=== PATIENT | female | born 1970 | race Caucasian/White ===

== ENCOUNTER 2016-05-31 13:56 | Emergency (ER) | payer OTHER ==
[~2016-05-31] VITALS: Ht 157.5 cm; Wt 70.5 kg
[~2016-05-31 13:56] MED LIST: ACET325 PO
[2016-05-31 13:58] VITALS: BP 182/89; PULSE 129; RESP 20; TEMP 99.3; O2SAT 97
--- NOTE | 2016-05-31 15:41 | PD ---
HPI Chief Complaint: Abdominal Pain Time Seen by Provider: 15:41 Travel History International Travel<30 days: No Contact w/Intl Traveler<30days: No Traveled to known affect area: No History of Present Illness HPI 46-year-old female presents to the emergency department for evaluation of abdominal pain. Patient states is a pressure in her abdomen. She states she has had it for approximately 3-4 weeks. She also reports low back pain. The patient does report a history of ovarian cysts. However, she states this pain is not consistent with previous pain from her ovarian cyst. She states that she has a history of tubal ligation was concerned that she could be as her causing her symptoms. She states that her periods have been different, intermittent bleeding with them. Patient denies any fevers. She has associated nausea, no vomiting. No diarrhea. No blood in her stool. No chest pain or shortness of breath. Patient has history of tubal ligation and 2 C- sections. She denies any abnormal vaginal discharge. PFS Past Medical History Ulcer: Yes : 2 Para: 2 Tubal Ligation: Yes Past Surgical History Section: Yes (BOTH DELIVERIES) Social History Alcohol Use: Yes (OCCASIONALLY) Tobacco Use: Yes (ELECTRIC CIGARETTES) Substance Use: No Allergies-Medications (Allergen,Severity, Reaction): Coded Allergies: Aspirin (Verified Allergy, Severe, HIVES, 05/31/16) Motrin (Verified Allergy, Severe, HIVES, 05/31/16) Reported Meds & Prescriptions Reported Meds & Active Scripts Active Review of Systems Except as stated in HPI: all other systems reviewed are Neg Physical Exam Narrative GENERAL: Well-nourished, well-developed female patient, Ambulatory. Afebrile. SKIN: Focused skin assessment warm/dry. HEAD: Normocephalic. Atraumatic. EYES: No scleral icterus. No injection or drainage. NECK: Supple, trachea midline. No JVD or lymphadenopathy. CARDIOVASCULAR: Regular rate and rhythm without murmurs, gallops, or rubs. RESPIRATORY: Breath sounds equal bilaterally. No accessory muscle use. Lungs sounds are clear to auscultation. GASTROINTESTINAL: Abdomen soft and nondistended. Patient has diffuse tenderness to palpation. MUSCULOSKELETAL: No cyanosis, or edema. BACK: Nontender without obvious deformity. No CVA tenderness. Data Data Last Documented VS Vital Signs Date Time Temp Pulse Resp B/P Pulse Ox O2 Delivery O2 Flow Rate FiO2 05/31/16 17:18 99 05/31/16 13:58 99.3 129 20 182/89 Room Air Orders Complete Blood Count With Diff (05/31/16 15:41) Comprehensive Metabolic Panel (05/31/16 15:41) Lipase (05/31/16 15:41) Urinalysis - C+S If Indicated (05/31/16 15:41) Iv Access Insert/Monitor (05/31/16 15:41) Ecg Monitoring (05/31/16 15:41) Oximetry (05/31/16 15:41) Sodium Chloride 0.9% Flush (Ns Flush) (05/31/16 15:45) Ed Urine Pregnancytest Poc (05/31/16 15:41) Ondansetron Inj (Zofran Inj) (05/31/16 15:45) Ct Abd/Pel W Iv Contrast(Rout) (05/31/16 ) Iohexol 350 Inj (Omnipaque 350 Inj) (05/31/16 17:21) Mandatory Outpatient Referral (05/31/16 18:04) Labs Laboratory Tests Test 05/31/16 16:00 White Blood Count 7.2 TH/MM3 Red Blood Count 4.48 MIL/MM3 Hemoglobin 13.1 GM/DL Hematocrit 38.7 % Mean Corpuscular Volume 86.4 FL Mean Corpuscular Hemoglobin 29.2 PG Mean Corpuscular Hemoglobin 33.9 % Concent Red Cell Distribution Width 13.2 % Platelet Count 229 TH/MM3 Mean Platelet Volume 7.3 FL Neutrophils (%) (Auto) 77.5 % Lymphocytes (%) (Auto) 11.0 % Monocytes (%) (Auto) 6.7 % Eosinophils (%) (Auto) 4.4 % Basophils (%) (Auto) 0.4 % Neutrophils # (Auto) 5.5 TH/MM3 Lymphocytes # (Auto) 0.8 TH/MM3 Monocytes # (Auto) 0.5 TH/MM3 Eosinophils # (Auto) 0.3 TH/MM3 Basophils # (Auto) 0.0 TH/MM3 CBC Comment DIFF FINAL Differential Comment Urine Color YELLOW Urine Turbidity CLEAR Urine pH 8.0 Urine Specific Ola 1.025 Urine Protein 30 mg/dL Urine Glucose (UA) NEG mg/dL Urine Ketones NEG mg/dL Urine Occult Blood NEG Urine Nitrite NEG Urine Bilirubin NEG Urine Urobilinogen 2.0 MG/DL Urine Leukocyte Esterase NEG Urine RBC LESS THAN 1 /hpf Urine WBC 1 /hpf Urine Squamous Epithelial 2 /hpf Cells Urine Mucus MOD /lpf Microscopic Urinalysis Comment CULT NOT INDICATED Sodium Level 139 MEQ/L Potassium Level 4.2 MEQ/L Chloride Level 103 MEQ/L Carbon Dioxide Level 29.4 MEQ/L Anion Gap 7 MEQ/L Blood Urea Nitrogen 13 MG/DL Creatinine 0.88 MG/DL Estimat Glomerular Filtration 69 ML/MIN Rate Random Glucose 96 MG/DL Calcium Level 9.3 MG/DL Total Bilirubin 0.5 MG/DL Aspartate Amino Transf 72 U/L (AST/SGOT) Alanine Aminotransferase 88 U/L (ALT/SGPT) Alkaline Phosphatase 77 U/L Total Protein 8.2 GM/DL Albumin 3.9 GM/DL Lipase 138 U/L [facility] Medical Decision Making Medical Screen Exam Complete: Yes Emergency Medical Condition: Yes Medical Record Reviewed: Yes Interpretation(s) CT abdomen/pelvis - CONCLUSION: 1. Abnormal enlargement of the cervix with enhancement concerning for malignancy. GRAPHICS PRODUCTION SPECIALIST evaluation is warranted. Differential Diagnosis Ovarian cyst versus pancreatitis versus UTI versus constipation versus unlikely Narrative Course 46-year-old female presents to the emergency department for evaluation abdominal pain for 3-4 weeks. On physical exam, patient has diffuse tenderness to palpation. CBC, CMP, lipase, UA, urine test are ordered and pending. CBC shows no acute abnormality. CMP shows elevated AST 72, AST 88. Lipase is 138. UA is negative for acute infection. UPT is negative. CT abdomen/pelvis shows abnormal enlargement of the cervix with enhancement concerning for malignancy. GRAPHICS PRODUCTION SPECIALIST evaluation is warranted. I discussed CT results my attending physician, Dr. Gonzalez, who recommends follow-up with outpatient safety instructor. I discussed this and gave the patient a copy of results. A mandatory referral was placed. I will have registration or financial counselor speak to the patient about patient assistance. Verbalizes agreement states she will follow up outpatient. She is return for any acute worsening of symptoms. Diagnosis Primary Impression: Cervix abnormality Referrals: Mechanical Test Technician call for appointment Patient Instructions: Cervical Cancer (GEN), General Instructions Additional Instructions: Please follow up with safety instructor as your CT scan is concerning for cervical cancer. A mandatory referral was placed. Return to the emergency department for any acute worsening of symptoms. Med/Other Pt SpecificInfo: No Change to Meds Disposition: 01 DISCHARGE HOME Condition: Stable Ankita Guzman May 31, 2016 15:41
[2016-05-31] MEDS ORDERED: ONDANSETRON HCL 4 MG/2 ML VIAL IV PUSH ONE (15:45)
[2016-05-31 16:10] LABS: AUTOMATED NEUTROPHIL # 5.5 TH/MM3 (1.8-7.7); BASOPHIL % 0.4 % (0.0-2.0); EOSINOPHIL # 0.3 TH/MM3 (0-0.4); EOSINOPHIL % 4.4 % (0.0-4.0); HEMATOCRIT 38.7 % (35.0-46.0); HEMO FLAGS DIFF FINAL; LYMPHOCYTE # 0.8 TH/MM3 (1.0-4.8); MEAN CELL VOLUME 86.4 FL (80.0-100.0); MEAN CORPUSCULAR HEMOGLOBIN 29.2 PG (27.0-34.0); MEAN CORPUSCULAR HGB CONC 33.9 % (32.0-36.0); MONO % 6.7 % (0.0-8.0); NEUT % 77.5 % (16.0-70.0); PLATELET COUNT 229 TH/MM3 (150-450); RED BLOOD COUNT 4.48 MIL/MM3 (4.00-5.30); RED CELL DISTRIBUTION WIDTH 13.2 % (11.6-17.2); WHITE BLOOD COUNT 7.2 TH/MM3 (4.0-11.0)
[2016-05-31 16:18] LABS: BLOOD, URINE NEG (NEG); COMMENT (UR) CULT NOT INDICATED; CULTURE IF INDICATED CULT NOT INDICATED; GLUCOSE,URINE NEG (NEG); KETONE, URINE NEG (NEG); MUCUS URINE MOD /lpf (OCC); NITRITE,URINE NEG (NEG); SQUAMOUS EPITHELIAL CELL URINE 2 /hpf (0-5); URINE COLOR YELLOW (YELLW/STRAW)
[2016-05-31 16:32] LABS: ALKALINE PHOSPHATASE 77 U/L (45-117); ALT (GPT) 88 U/L (10-53); ANION GAP 7 MEQ/L (5-15); AST (GOT) 72 U/L (15-37); BICARBONATE 29.4 MEQ/L (21.0-32.0); BLOOD UREA NITROGEN 13 MG/DL (7-18); CHLORIDE 103 MEQ/L (98-107); GLOMERULAR FILTRATION RATE 69 ML/MIN (>89); POTASSIUM 4.2 MEQ/L (3.5-5.1); SODIUM (NA) 139 MEQ/L (136-145); TOTAL BILIRUBIN ADULT 0.5 MG/DL (0.2-1.0)
[2016-05-31] MEDS: SODIUM CHLORIDE 0.9% FLUSH 10 ML FLUSH IV FLUSH PRN ×3 (16:45→17:23)
[2016-05-31 17:18] VITALS: O2SAT 99
[2016-05-31] MEDS ORDERED: IOHEXOL 350 MG/ML 10 ML VIAL (for RAD DIAG) IV ONE (17:21)
--- NOTE | 2016-05-31 17:50 | RADRPT ---
EXAM DATE/TIME: 05/31/2016 17:19 [facility] COMPARISON: CT ABDOMEN & PELVIS W CONTRAST, November 04, 2014, 13:46. INDICATIONS : Abdominal pain and pressure radiating to low back. IV CONTRAST: 100 cc Omnipaque 350 (iohexol) IV ORAL CONTRAST: No oral contrast ingested. RADIATION DOSE: 9.96 CTDIvol (mGy) MEDICAL HISTORY : Ulcers. Abnormal periods. SURGICAL HISTORY : None. ENCOUNTER: Initial ACUITY: 1 day PAIN SCALE: 6/10 LOCATION: Bilateral lower quadrant TECHNIQUE: Volumetric scanning of the abdomen and pelvis was performed. Using automated exposure control and ad justment of the mA and/or kV according to patient size, radiation dose was kept as low as reasonably achievable to obtain optimal diagnostic quality images. FINDINGS: The limited portion of the lung base visualized is clear. The appearance of the liver, spleen, pancreas, adrenal glands and kidneys are within normal limits. T he abdominal aorta is normal in caliber. There is no retroperitoneal adenopathy. The visualized loops of small and large bowel are unremarkable. Imaging through the pelvis demonstrates abnormal enlargement of the cervix. This extends nearly to th e pelvic sidewall with diffuse enhancement. Examination would be concerning for a possible cervical m alignancy. STUDIO TECHNICIAN examination is warranted for further assessment. No iliac or inguinal adenopathy is seen. The visualized bony structures are grossly intact. CONCLUSION: 1. Abnormal enlargement of the cervix with enhancement concerning for malignancy. STUDIO TECHNICIAN evaluation is w arranted. Humberto Mcdowell MD on May 31, 2016 at 17:41 Board Certified Radiologist. This report was verified electronically.
== END 2016-05-31 18:54 | disposition home or self-care (01) ==
LOC: NEPD 13:56
DX: N88.8 Other specified noninflammatory disorders of cervix uteri (principal); M54.5 Low back pain
CPT/HCPCS: 74177; 80053; 81001; 83690; 84703; 85025; 96374; 99284; J2405; Q9967

== ENCOUNTER → 2016-08-25 | Outpatient (CLI) | payer OTHER ==
[2016-08-25 12:24] LABS: AUTOMATED NEUTROPHIL # 5.2 TH/MM3 (1.8-7.7); BASOPHIL # 0.1 TH/MM3 (0-0.2); BASOPHIL % 0.7 % (0.0-2.0); EOSINOPHIL # 0.6 TH/MM3 (0-0.4); EOSINOPHIL % 8.3 % (0.0-4.0); HEMATOCRIT 36.2 % (35.0-46.0); LYMPH % 12.4 % (9.0-44.0); LYMPHOCYTE # 0.9 TH/MM3 (1.0-4.8); MEAN CELL VOLUME 85.9 FL (80.0-100.0); MEAN CORPUSCULAR HEMOGLOBIN 28.4 PG (27.0-34.0); MONO % 6.8 % (0.0-8.0); NEUT % 71.8 % (16.0-70.0); PLATELET COUNT 230 TH/MM3 (150-450); RED BLOOD COUNT 4.21 MIL/MM3 (4.00-5.30); RED CELL DISTRIBUTION WIDTH 12.8 % (11.6-17.2); WHITE BLOOD COUNT 7.2 TH/MM3 (4.0-11.0)
[2016-08-25 12:27] LABS: HEMO FLAGS AUTO DIFF
[2016-08-25 12:54] LABS: ALT (GPT) 71 U/L (10-53); ANION GAP 9 MEQ/L (5-15); AST (GOT) 56 U/L (15-37); BICARBONATE 29.5 MEQ/L (21.0-32.0); BLOOD UREA NITROGEN 11 MG/DL (7-18); CHLORIDE 100 MEQ/L (98-107); GLOMERULAR FILTRATION RATE 71 ML/MIN (>89); GLUCOSE,FASTING 88 MG/DL (74-99); POTASSIUM 4.1 MEQ/L (3.5-5.1); SODIUM (NA) 138 MEQ/L (136-145)
[2016-08-25 13:04] LABS: ALKALINE PHOSPHATASE 90 U/L (45-117); HDL CHOLESTEROL 71.4 MG/DL (40.0-60.0); LDL CHOLESTEROL 93 MG/DL (0-99); TOTAL BILIRUBIN ADULT 0.4 MG/DL (0.2-1.0)
[2016-08-25 13:49] LABS: SCAN/DIFF AUTO DIFF CONFIRMED
== END ==
LOC: CLAB 12:00
PROVIDERS: ATTEND Family Medicine
DX: N88.9 Noninflammatory disorder of cervix uteri, unspecified (principal); B19.20 Unspecified viral hepatitis C without hepatic coma; Z72.0 Tobacco use
CPT/HCPCS: 36415; 80053; 80061; 84443; 85025

== ENCOUNTER 2017-05-09 11:30 | Emergency (ER) | payer OTHER ==
[~2017-05-09] VITALS: Ht 157.5 cm; Wt 80.0 kg
[~2017-05-09 11:30] MED LIST changes: -ACET325 PO; +DIFL150T PO
[2017-05-09 11:46] VITALS: BP 158/72; PULSE 106; RESP 17; TEMP 98.5; O2SAT 97
--- NOTE | 2017-05-09 12:20 | PD ---
HPI Chief Complaint: Pain: Acute or Chronic Time Seen by Provider: 12:08 Travel History International Travel<30 days: No Contact w/Intl Traveler<30days: No Traveled to known affect area: No History of Present Illness HPI 47-year-old female presents to the emergency room for evaluation of chronic low back pain and left foot bunion. Patient has history of chronic low back pain and states this exacerbation worsened 1 month ago. She can only take Tylenol because of allergy to aspirin and ibuprofen. She denies fever, chills, nausea, vomiting, weight loss, IV drug use, saddle anesthesia, loss of bowel or bladder control, or lower extremity paresthesias. The left foot bunion has been worsening over the past several weeks. States pain is worsened with ambulation. History Social History Alcohol Use: Yes (OCCASIONALLY) Tobacco Use: No Allergies-Medications (Allergen,Severity, Reaction): Coded Allergies: aspirin (Unverified Allergy, Severe, HIVES, 05/09/17) ibuprofen (Unverified Allergy, Severe, HIVES, 05/09/17) Reported Meds & Prescriptions Reported Meds & Active Scripts Active Diflucan (Fluconazole) 150 Mg Tab 150 Mg PO ONCE Review of Systems Except as stated in HPI: all other systems reviewed are Neg Physical Exam Narrative GENERAL: Well-nourished, well-developed female no acute distress. Afebrile. Ambulatory. SKIN: Focused skin assessment warm/dry. HEAD: Normocephalic. EYES: No scleral icterus. No injection or drainage. MUSCULOSKELETAL: No cyanosis, or edema. There is a hallux valgus to the left foot that is mildly tender to palpation. BACK: Nontender without obvious deformity. No CVA tenderness. Negative straight leg raise bilaterally. Data Data Last Documented VS Vital Signs Date Time Temp Pulse Resp B/P (MAP) Pulse Ox O2 Delivery O2 Flow Rate FiO2 05/09/17 11:46 98.5 106 17 158/72 (100) 97 MDM Medical Screen Exam Complete: Yes Emergency Medical Condition: No Differential Diagnosis Hallux valgus, chronic back pain Narrative Course 47-year-old female presents to the emergency room for evaluation of 2 chronic medical conditions. The first is back pain, the second has hallux valgus. No red flag symptoms. Negative straight leg raise bilaterally. Patient is ambulatory. Vital signs stable. There are no urgent or emergent medical conditions at this time. A medical screening exam was performed: At the time of evaluation the presenting medical condition was determined not to be of an emergent nature. The patient was given the option of receiving additional care, but declined. Patient was given options for additional community resources from which to obtain care. The Patient Has Been advised to seek medical attention for their presenting complaint. The patient has been advised to return to the ER at any time if an emergent condition develops. Primary Impression: Encounter for medical screening examination Disposition: 01 DISCHARGE HOME Condition: Stable Terrie Pickard May 09, 2017 12:20
== END 2017-05-09 12:21 | disposition left against medical advice (07) ==
LOC: NEPK 11:30
DX: M54.5 Low back pain (principal); M21.612 Bunion of left foot
CPT/HCPCS: 99281